=== PATIENT | female | born 1955 | race Two or more races ===

== ENCOUNTER → 2024-09-09 | Outpatient (CLI) | payer MEDICARE, MEDICAID, SELFPAY ==
[2024-09-09 11:40] LABS: Misc Send Out* See Sep Rpt
[2024-09-09 11:54] LABS: Collection Type, Urine Clean Catch
[2024-09-09 12:02] LABS: Basophils % (Auto) 1 % (0-2.5); Eosinophils # (Auto) 0.2 Thou/mm3 (0.0-0.5); Eosinophils % (Auto) 3 % (0-10); Hematocrit 41.7 % (36.0-46.0); Hemoglobin 13.6 g/dL (12.0-16.0); Immature Granulocytes % (Auto) 0 % (0-0); Immature Granulocytes Auto 0.02 Thou/mm3 (0.00-0.00); Lymphocytes # (Auto) 0.8 Thou/mm3 (1.0-4.8); Lymphocytes % (Auto) 12 % (10-50); Mean Corpuscular HGB Conc 32.6 g/dl (31.0-37.0); Mean Corpuscular Hemoglobin 28.6 pg (25.0-35.0); Mean Corpuscular Volume 88 fL (80-100); Monocytes # (Auto) 0.5 Thou/mm3 (0.0-0.8); Monocytes % (Auto) 7 % (0-12); Neutrophils # (Auto) 5.1 Thou/mm3 (1.8-7.7); Neutrophils % (Auto) 77 % (37-80); Nucleated Red Blood Cell % 0 /100 WBC (0); Platelet Count 192 Thou/mm3 (140-440); RDW Standard Deviation 43.9 fL (36.4-46.3); Red Blood Count 4.75 Miln/mm3 (4.00-5.20); White Blood Count 6.6 Thou/mm3 (3.6-11.0)
[2024-09-09 12:09] LABS: Bacteria,Urine 4+; Bilirubin,Urine Negative (Negative); Blood,Urine Negative (Negative); Clarity,Urine Turbid (Clear/Hazy); Color,Urine Yellow (Lt Yel-Yel); Glucose, Urine Negative (Negative); Ketones,Urine Negative (Negative); Leukocyte Esterase,Urine Positive (Negative); Nitrite,Urine Positive (Negative); PH,Urine 5.5 (5.0-7.0); Protein,Urine Trace (Neg - Trace); RBC,Urine 13 /hpf (0-3); Specific Gravity,Urine 1.024 (1.001-1.035); Squamous Epithelial Cell,Urine 18 /hpf (0-5); Urobilinogen,Urine Negative mg/dL (0.0-1.0); WBC,Urine 40 /hpf (0-5)
[2024-09-09 12:11] LABS: Amphetamine/Methamp Scrn,U Negative (Negative); Barbiturate Screen,Urine Negative (Negative); Benzodiazepines Screen,Urine Negative (Negative); Benzoylecgonine Screen, Ur Negative (Negative); Fentanyl Screen,Urine Negative (Negative); Opiate Screen,Urine Negative (Negative); THC Screen,Urine Negative (Negative)
[2024-09-09 12:12] LABS: Glucose Estimated Average 111 mg/dL (80-131); Hemoglobin A1C 5.5 % Hgb (4.8-6.0)
[2024-09-09 12:18] LABS: D-Dimer 1220 ng/mL (<600)
[2024-09-09 12:19] LABS: Partial Thromboplastin Time 27.1 Seconds (22.0-36.0); Prothrombin Time 11.3 Seconds (9.0-12.2)
[2024-09-09 12:21] LABS: Iron 45 mcg/dL (50-170); Percent Iron Saturation 16 % (20-55); Total Iron Binding Capacity 266 mcg/dL (250-425); Unsaturated Iron Binding 221 (225-295)
[2024-09-09 12:25] LABS: Alanine Aminotransferase 14 U/L (10-49); Albumin, Serum 3.9 gm/dL (3.4-4.8); Albumin/Globulin Ratio 1.5 (1.2-2.2); Alkaline Phosphatase 95 U/L (46-116); Anion Gap 4 (7-16); Aspartate Amino Transferase 14 U/L (0-34); BUN/Creatinine Ratio 17 Ratio (12-20); Bilirubin,Total 0.9 mg/dL (0.3-1.2); Blood Urea Nitrogen 15 mg/dL (9-23); Calcium 8.8 mg/dL (8.3-10.6); Calcium (Corrected) 8.9 mg/dL (8.5-10.1); Carbon Dioxide 28.6 mMol/L (20.0-31.0); Cardiac Risk Estimate 3.8 RATIO (3.7-5.6); Chloride 106 mMol/L (98-107); Cholesterol 169 mg/dL (132-200); Creatinine (Component) 0.9 mg/dL (0.6-1.3); Free T4 (Free Thyroxine) 1.07 ng/dL (0.89-1.76); Globulin 2.6 gm/dL (2.3-3.5); Glucose 99 mg/dL (74-106); HDL Cholesterol 45 mg/dL (40-60); LDL Cholesterol,Calculated 103 mg/dL (0-130); Osmolality,Calculated 278 (275-295); Potassium 4.3 mMol/L (3.4-5.1); Sodium 139 mMol/L (136-145); Thyroid Stimulating Hormone 1.19 uIU/mL (0.55-4.78); Total Protein 6.5 gm/dL (5.7-8.2); Triglycerides 105 mg/dL (30-150); eGFR > 60 See Note
[2024-09-09 12:29] LABS: Vitamin B12 > 2000 pg/mL (211-911); Vitamin D 25 Hydroxy Total 17.1 ng/mL (7.3-40.2)
[2024-09-11 22:07] LABS: HCV RNA, PCR <15 NOT DETECTED IU/mL
[2024-09-12 07:01] LABS: HCV RNA, PCR Log IU <1.18 NOT DETECTED Log IU/mL
== END | disposition home or self-care (01) ==
PROVIDERS: PCP Nurse Practitioner Family; Referring Provider Nurse Practitioner Family; Visit Provider Nurse Practitioner Family
DX: Z00.00 Encounter for general adult medical examination without abnormal findings (principal); Z09 Encounter for follow-up examination after completed treatment for conditions other than malignant neoplasm; Z11.59 Encounter for screening for other viral diseases; J45.998 Other asthma; K21.9 Gastro-esophageal reflux disease without esophagitis; N75.1 Abscess of Bartholin's gland; H10.12 Acute atopic conjunctivitis, left eye; H65.03 Acute serous otitis media, bilateral; N39.0 Urinary tract infection, site not specified; H70.91 Unspecified mastoiditis, right ear; M26.622 Arthralgia of left temporomandibular joint; S88.112A Complete traumatic amputation at level between knee and ankle, left lower leg, initial encounter; K59.04 Chronic idiopathic constipation; K62.89 Other specified diseases of anus and rectum; J01.20 Acute ethmoidal sinusitis, unspecified; L03.115 Cellulitis of right lower limb; B00.2 Herpesviral gingivostomatitis and pharyngotonsillitis; M48.061 Spinal stenosis, lumbar region without neurogenic claudication; S83.271D Complex tear of lateral meniscus, current injury, right knee, subsequent encounter; H00.036 Abscess of eyelid left eye, unspecified eyelid; L73.9 Follicular disorder, unspecified; M79.631 Pain in right forearm; R51.9 Headache, unspecified; R53.83 Other fatigue; M54.2 Cervicalgia; M25.571 Pain in right ankle and joints of right foot; M25.512 Pain in left shoulder; M25.511 Pain in right shoulder; M79.622 Pain in left upper arm; M54.50 Low back pain, unspecified; R23.3 Spontaneous ecchymoses; R10.13 Epigastric pain; R10.12 Left upper quadrant pain; R06.02 Shortness of breath; R05.9 Cough, unspecified; Z13.820 Encounter for screening for osteoporosis; R22.0 Localized swelling, mass and lump, head; L60.0 Ingrowing nail; R13.14 Dysphagia, pharyngoesophageal phase; N61.0 Mastitis without abscess; E66.01 Morbid (severe) obesity due to excess calories; D22.30 Melanocytic nevi of unspecified part of face; R11.0 Nausea; M71.21 Synovial cyst of popliteal space [Baker], right knee; Z78.9 Other specified health status; W18.30XA Fall on same level, unspecified, initial encounter; X58.XXXD Exposure to other specified factors, subsequent encounter
CPT/HCPCS: 36415; 80053; 80061; 80307; 81001; 82306; 82607; 83036; 83540; 83550; 84439; 84443; 85025; 85379; 85610; 85730; 87522

== ENCOUNTER 2025-01-10 20:13 | Emergency (ER) | payer MEDICARE, MEDICAID, SELFPAY ==
[2025-01-10 20:14] VITALS: BP 126/74; PULSE 82; RESP 20; TEMP 36.9; O2SAT 96
[2025-01-10 20:15] VITALS: BMI 44.2
--- NOTE | 2025-01-10 20:50 | XR_ITS ---
Examination: Knee, left , 3 views Technique: Knee AP, lateral, oblique 3 views Date and time of exam: January 10, 2025 2100 hours INDICATIONS: Injury to knee today, knee pain. FINDINGS: Below the knee amputation. Severe osteopenia No acute fracture IMPRESSION: No acute fracture
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
[2025-01-10] MEDS: NAPROXEN 250 MG TABLET 500 MG PO (21:05)
[2025-01-10 21:50] VITALS: BP 145/62; PULSE 89; RESP 18; TEMP 36.7; O2SAT 99
== END 2025-01-10 21:51 | disposition home or self-care (01) ==
PROVIDERS: Emergency Provider Emergency Medicine; PCP Internal Medicine
DX: M25.562 Pain in left knee (principal)
CPT/HCPCS: 73562; 99283; A9270

== ENCOUNTER 2025-02-27 09:54 | Emergency (ER) | payer MEDICARE, MEDICAID, SELFPAY ==
[2025-02-27 10:16] VITALS: BP 162/88; PULSE 72; RESP 18; TEMP 36.7; O2SAT 95
--- NOTE | 2025-02-27 10:32 | XR_ITS ---
Examination: CT abdomen and pelvis without contrast. Coronal 3-D reconstructions. Sagittal 2-D reconstructions. Date and time of exam:February 27, 2025 1047 hours, comparison June 19, 2020 INDICATIONS: Abdominal pain with difficulty urinating today CTDI: vol (mGy): 14.1 DLP: (mGycm): 879 Technique: Axial images of the abdomen have been obtained, 3 mm slice thickness Intravenous contrast material has not been administered. Low dose protocols were performed. One or more of the following dose reduction techniques were used; automated exposure control, adjustment of the mA and/or KV according to patient size, use of iterative reconstruction technique. Findings: No focal liver or splenic lesion No gallstones No pancreatic or adrenal mass Bilateral parapelvic cysts No renal or ureteral calculi, no hydronephrosis Normal appendix No bowel obstruction Atrophic anteverted uterus No pelvic mass No bladder mass or bladder calculi Bladder is not distended Grade 1 spondylolisthesis L5 on S1 with advanced degenerative disc disease L5-S1 Moderate narrowing left hip joint IMPRESSION: No renal or ureteral calculi, no hydronephrosis Normal appendix No bowel obstruction Urinary bladder is not distended Grade 1 spondylolisthesis L5 on S1 with advanced degenerative disc disease at this level
--- NOTE | 2025-02-27 10:33 | PD.EDRME ---
Rapid Medical Screening Exam E Arrival date/time: 02/27/25 09:54 69-year-old female with a history of diverticulitis presents to the emergency room with a chief complaint of urinary retention and dysuria x 2 days. Patient was seen by her primary care provider and sent to the emergency room. I have greeted and performed a focused initial assessment of this patient. A comprehensive ED assessment and evaluation of the patient, analysis of all test results, and completion of the medical decision making process will be conducted by additional ED providers. Chief Complaint: Abdominal Pain Time Seen by Provider: 02/27/25 10:17 Vital signs: Vital Signs Temperature 98.1 F 02/27/25 10:16 Pulse Rate 72 02/27/25 10:16 Respiratory Rate 18 02/27/25 10:16 Blood Pressure 162/88 H 02/27/25 10:16 Pulse Oximetry (%) 95 02/27/25 10:16 Oxygen Delivery Method Room Air 02/27/25 10:16 Vital signs reviewed by provider: Yes
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
[2025-02-27 11:39] LABS: Basophils # (Auto) 0.1 Thou/mm3 (0.0-0.2); Basophils % (Auto) 1 % (0-2.5); Eosinophils # (Auto) 0.1 Thou/mm3 (0.0-0.5); Eosinophils % (Auto) 2 % (0-10); Hematocrit 44.3 % (36.0-46.0); Hemoglobin 14.4 g/dL (12.0-16.0); Immature Granulocytes Auto 0.02 Thou/mm3 (0.00-0.00); Lymphocytes # (Auto) 1.3 Thou/mm3 (1.0-4.8); Lymphocytes % (Auto) 22 % (10-50); Mean Corpuscular HGB Conc 32.5 g/dl (31.0-37.0); Mean Corpuscular Hemoglobin 29.3 pg (25.0-35.0); Mean Corpuscular Volume 90 fL (80-100); Monocytes # (Auto) 0.5 Thou/mm3 (0.0-0.8); Monocytes % (Auto) 9 % (0-12); Neutrophils # (Auto) 3.8 Thou/mm3 (1.8-7.7); Neutrophils % (Auto) 65 % (37-80); Nucleated Red Blood Cell # 0.00 Thou/mm3 (0.00-0.00); Nucleated Red Blood Cell % 0 /100 WBC (0); Platelet Count 209 Thou/mm3 (140-440); RDW Standard Deviation 45.7 fL (36.4-46.3); Red Blood Count 4.91 Miln/mm3 (4.00-5.20); White Blood Count 5.9 Thou/mm3 (3.6-11.0)
[2025-02-27 11:40] LABS: Collection Type, Urine Clean Catch
[2025-02-27 11:49] LABS: Bilirubin,Urine Negative (Negative); Blood,Urine Trace (Negative); Color,Urine Lt-Yellow (Lt Yel-Yel); Glucose, Urine Negative (Negative); Hyaline Casts,Urine < 1 /hpf (0-1); Ketones,Urine Negative (Negative); Leukocyte Esterase,Urine Positive (Negative); Nitrite,Urine Negative (Negative); PH,Urine 6.0 (5.0-7.0); Protein,Urine Negative (Neg - Trace); RBC,Urine 2 /hpf (0-3); Specific Gravity,Urine 1.010 (1.001-1.035); Squamous Epithelial Cell,Urine 9 /hpf (0-5); Urobilinogen,Urine Negative mg/dL (0.0-1.0); WBC,Urine 5 /hpf (0-5)
[2025-02-27 12:04] LABS: Alanine Aminotransferase 11 U/L (10-49); Albumin, Serum 4.2 gm/dL (3.4-4.8); Albumin/Globulin Ratio 1.7 (1.2-2.2); Alkaline Phosphatase 104 U/L (46-116); Anion Gap 9 (7-16); Aspartate Amino Transferase 15 U/L (0-34); BUN/Creatinine Ratio 10 Ratio (12-20); Bilirubin,Total 0.7 mg/dL (0.3-1.2); Blood Urea Nitrogen 9 mg/dL (9-23); Calcium 9.3 mg/dL (8.3-10.6); Calcium (Corrected) 9.3 mg/dL (8.5-10.1); Carbon Dioxide 25.8 mMol/L (20.0-31.0); Chloride 106 mMol/L (98-107); Creatinine (Component) 0.9 mg/dL (0.6-1.3); Estimated Creatinine Clearance 70.5 mL/min (>60); Globulin 2.5 gm/dL (2.3-3.5); Glucose 105 mg/dL (74-106); Lipase 31 U/L (12-53); Osmolality,Calculated 279 (275-295); Potassium 4.2 mMol/L (3.4-5.1); Sodium 141 mMol/L (136-145); Total Protein 6.7 gm/dL (5.7-8.2); eGFR > 60 See Note
[2025-02-27 12:09] LABS: Clarity,Urine Hazy (Clear/Hazy)
[2025-02-27 12:17] VITALS: BP 149/61; PULSE 66; RESP 15; TEMP 36.4; O2SAT 96
[2025-02-27] MEDS: KETOROLAC INJ 30 MG/ML VIAL 15 MG IVP (12:31)
[2025-02-27 13:11] VITALS: BP 146/68; PULSE 64; RESP 15; TEMP 36.4; O2SAT 96
== END 2025-02-27 13:26 | disposition home or self-care (01) ==
PROVIDERS: Nurse Practitioner Family; Emergency Provider Emergency Medicine
DX: R33.9 Retention of urine, unspecified (principal); R39.15 Urgency of urination; K59.09 Other constipation
CPT/HCPCS: 51702; 36415; 74176; 80053; 81001; 81025; 83690; 85025; 87077; 87086; 87186; 96374; 99284; A4314; J1885